=== PATIENT | female | born 1985 | race Two or more races ===

== ENCOUNTER → 2019-12-22 | Outpatient (CLI) | payer MEDICAID ==
[~2019-12-22] MED LIST: FERR325T23 PO; IBUP-2028 PO
== END | disposition home or self-care (01) ==
LOC: LAB 10:35
PROVIDERS: ATTEND Obstetrics & Gynecology
DX: Z03.818 Encounter for observation for suspected exposure to other biological agents ruled out (principal); Z02.1 Encounter for pre-employment examination
CPT/HCPCS: C9803; U0003

== ENCOUNTER 2019-12-25 08:11 | Inpatient (IN) | payer MEDICAID ==
[~2019-12-25] VITALS: Ht 160 cm; Wt 77.6 kg
[2019-12-25] MEDS ORDERED: LACTATED RINGERS 1,000 ML IV SCH (09:33)
[2019-12-25] MEDS ORDERED: DEXT 5%/LR + PITOCIN 20UNITS/L 1,000 ML IV PRN (09:45)
[2019-12-25] MEDS ORDERED: CARBOPROST TROMETHAMINE 250 MCG/ML AMPUL IM PRN (09:45)
[2019-12-25] MEDS ORDERED: METHYLERGONOVINE MALEATE 0.2 MG/ML IM PRN (09:45)
[2019-12-25] MEDS ORDERED: MISOPROSTOL 200MCG TABLET PO PRN (09:45)
[2019-12-25 09:59] LABS: BASOPHILS % 0.8 % (0.0-2.0); EOSINOPHILS % 0.8 % (0.0-5.0); HEMATOCRIT. 33.8 % (36.0-48.0); HEMOGLOBIN. 11.3 g/dL (12.0-16.0); LYMPHOCYTES % 22.2 % (20.0-50.0); MEAN CORPUSCULAR VOLUME 86.6 fL (81.0-99.0); MEAN PLATELET VOLUME 8.2 fl (7.4-10.4); MONOCYTES % 5.4 % (2.0-8.0); NEUTROPHILS % 70.8 % (40.0-76.0); PLATELET 161 x1000/uL (130-400); RED BLOOD CELL COUNT 3.91 mill/uL (4.2-5.4); RED CELL DISTRIBUTION WIDTH 14.3 % (11.6-14.6)
[2019-12-25 10:06] LABS: CLARITY URINE CLEAR (CLEAR); COLOR URINE YELLOW (YELLOW); KETONES URINE NEGATIVE (NEGATIVE); LEUKOCYTE ESTERASE URINE NEGATIVE (NEGATIVE); NITRITE URINE NEGATIVE (NEGATIVE); OCCULT BLOOD URINE NEGATIVE (NEGATIVE); PROTEIN URINE NEGATIVE (NEGATIVE); SPECIFIC GRAVITY URINE 1.012 (1.005-1.030); UROBILINOGEN URINE 0.2 E.U./dL (0.2-1.0)
[2019-12-25 10:09] LABS: INR 0.9; PARTIAL THROMBOPLASTIN TIME 26.1 sec (23.4-31.0); PROTHROMBIN TIME 9.8 sec (9.6-11.0)
[2019-12-25 10:57] LABS: *AMPHETAMINES SCREEN URINE NEGATIVE (NEGATIVE); *BARBITURATES SCREEN URINE NEGATIVE (NEGATIVE); *BENZODIAZEPINES SCREEN URINE NEGATIVE (NEGATIVE); *COCAINE SCREEN URINE NEGATIVE (NEGATIVE)
[2019-12-25 10:58] LABS: CANNABINOID URINE SCREEN NEGATIVE (NEGATIVE); OPIATES URINE SCREEN NEGATIVE (NEGATIVE); PHENCYCLIDINE URINE SCREEN NEGATIVE (NEGATIVE)
[2019-12-25 10:59] LABS: METHADONE URINE SCREEN NEGATIVE (NEGATIVE)
[2019-12-25 11:26] LABS: HEPATITIS B SURFACE ANTIGEN NEGATIVE
[2019-12-25] MEDS ORDERED: MORPHINE SULFATE/PF 1MG/ML 10ML AMP ONE (13:53)
[2019-12-25] MEDS ORDERED: EPHEDRINE SULFATE 50MG/ML VIAL ONE (13:57)
[2019-12-25] MEDS ORDERED: CITRIC ACID/SODIUM CITRATE SOLN 30ML UDC PO NR (14:00)
[2019-12-25] MEDS ORDERED: CEFAZOLIN SODIUM 1000MG/VIAL ONE (14:01)
[2019-12-25] MEDS ORDERED: SODIUM CHLORIDE 0.9% 10ML VIAL ONE ×2 (14:01→14:02)
[2019-12-25] MEDS ORDERED: GLYCOPYRROLATE 0.2 MG/ML 2ML VIAL ONE ×2 (14:02→14:26)
[2019-12-25] MEDS ORDERED: METOCLOPRAMIDE HCL 10MG/2ML VIAL ONE (14:29)
[2019-12-25] MEDS ORDERED: ONDANSETRON HCL 4MG/2ML INJ ONE (14:29)
[2019-12-25] MEDS ORDERED: OXYTOCIN 10 UNITS/ML 1ML ONE ×2 (14:31→14:56)
[2019-12-25] MEDS ORDERED: MIDAZOLAM HCL 2 MG/2 ML VIAL ONE (14:49)
[2019-12-25] MEDS ORDERED: DIPHENHYDRAMINE 50MG/ML VIAL ONE (14:54)
[2019-12-25] MEDS ORDERED: DEXT 5%/LR + PITOCIN 20UNITS/L 1,000 ML IV SCH (15:23)
[2019-12-25] MEDS ORDERED: HEMORRHOIDAL SUPP PR PRN (15:30)
[2019-12-25] MEDS ORDERED: KETOROLAC 30MG/ML VIAL IV PRN (15:30)
[2019-12-25] MEDS ORDERED: DIPHENHYDRAMINE 25MG CAPSULE PO PRN (15:30)
[2019-12-25] MEDS ORDERED: BUTORPHANOL TARTRATE 2 MG/ML VIAL IM PRN (15:30)
[2019-12-25] MEDS ORDERED: ONDANSETRON HCL 4MG/2ML INJ IV PRN (15:30)
[2019-12-25] MEDS ORDERED: ACETAMINOPHEN WITH CODEINE 300/30MG TABLET PO PRN (15:30)
[2019-12-25] MEDS ORDERED: IBUPROFEN 400MG TABLET PO PRN (15:30)
[2019-12-25] MEDS ORDERED: BISACODYL 10MG SUPP PR PRN (15:30)
[2019-12-25] MEDS ORDERED: LANOLIN OINT 7GM TUBE TOP PRN (15:30)
[2019-12-25] MEDS ORDERED: HYDROCODONE/ACETAMINOPHEN 5/325MG TABLET PO PRN (15:30)
[2019-12-25] MEDS ORDERED: RHO(D) IMMUNE GLOBULIN 300 MCG/SYR IM PRN (15:30)
[2019-12-25 17:30] VITALS: BP 102/65
[2019-12-25 18:00] VITALS: BP 104/65
[2019-12-25 20:00] VITALS: BP 98/57
[2019-12-25] MEDS ORDERED: DOCUSATE SODIUM 100MG CAPSULE PO SCH (21:00)
[2019-12-25 23:59] VITALS: BP 96/61
[2019-12-26 04:00] VITALS: BP 97/54
[2019-12-26 06:24] LABS: BASOPHILS % 0.5 % (0.0-2.0); EOSINOPHILS % 0.5 % (0.0-5.0); HEMATOCRIT. 26.9 % (36.0-48.0); HEMOGLOBIN. 9.2 g/dL (12.0-16.0); LYMPHOCYTES % 21.8 % (20.0-50.0); MEAN CORPUSCULAR HEMOGLOBIN 29.6 pg (28.0-32.0); MEAN PLATELET VOLUME 7.9 fl (7.4-10.4); MONOCYTES % 6.1 % (2.0-8.0); NEUTROPHILS % 71.1 % (40.0-76.0); PLATELET 135 x1000/uL (130-400); RED BLOOD CELL COUNT 3.13 mill/uL (4.2-5.4); RED CELL DISTRIBUTION WIDTH 14.6 % (11.6-14.6)
[2019-12-26 07:53] VITALS: BP 94/58
[2019-12-26] MEDS: SIMETHICONE 80MG TABLET CHEW PO SCH ×4 (08:18→21:26)
[2019-12-26] MEDS: FERROUS SULFATE 325MG TABLET PO SCH ×3 (08:18→17:53)
[2019-12-26] MEDS: PRENATAL VIT/FE FUMARATE/FA TABLET PO SCH (08:18)
[2019-12-26] MEDS: MAGNESIUM/ALUMINUM HYDROXIDE/SIMETHICONE 30ML UDC PO SCH ×4 (08:18→21:26)
[2019-12-26 12:06] VITALS: BP 107/51
[2019-12-26 16:06] VITALS: BP 107/51
[2019-12-26 19:30] VITALS: BP 94/72
[2019-12-27 04:00] VITALS: BP 98/82
[2019-12-27] MEDS ORDERED: FERR325T23 PO (06:45)
[2019-12-27] MEDS ORDERED: IBUP-2028 PO (06:45)
[2019-12-27] MEDS: FERROUS SULFATE 325MG TABLET PO SCH (07:30)
[2019-12-27] MEDS: MAGNESIUM/ALUMINUM HYDROXIDE/SIMETHICONE 30ML UDC PO SCH (07:30)
[2019-12-27 08:00] VITALS: BP 101/69
[2019-12-27] MEDS: SIMETHICONE 80MG TABLET CHEW PO SCH (08:00)
[2019-12-27] MEDS: PRENATAL VIT/FE FUMARATE/FA TABLET PO SCH (08:23)
== END 2019-12-27 11:48 | disposition home or self-care (01) | DRG 540 ==
LOC: OBSVTOIN 08:11 → 8 EST LDRP 08:11 → 8EST 17:26
PROVIDERS: ADMIT Obstetrics & Gynecology; ATTEND Obstetrics & Gynecology
PROC: 0UB70ZZ Excision of Bilateral Fallopian Tubes, Open Approach (ICD-10-PCS; principal; 2019-12-25)
PROC: 10D00Z1 Extraction of Products of Conception, Low, Open Approach (ICD-10-PCS; 2019-12-25)
DX: O34.211 Maternal care for low transverse scar from previous cesarean delivery (principal); O99.02 Anemia complicating childbirth; D62 Acute posthemorrhagic anemia; Z37.0 Single live birth; Z30.2 Encounter for sterilization; Z3A.39 39 weeks gestation of pregnancy
CPT/HCPCS: 36415; 80305; 81003; 85025; 86592; 86703; 86762; 86850; 86900; 87340; 88302; 88307; 99281; J0690; J1200; J2250; J2274; J2405; J2590; J2765; J3490; J7120